=== PATIENT | female | born 1990 | race Caucasian/White ===

== ENCOUNTER 2017-12-30 00:07 | Outpatient (CLI) | payer OTHER, SELFPAY ==
--- NOTE | 2017-12-30 08:03 | DI.REPORT_ITS ---
SYMPTOM/DIAGNOSIS: INTERVAL GROWTH AND EFW AT 38 WEEKS, H/O SHOULDER DYSTOCIA IN PRIOR Z87.59 OB ULTRASOUND: No prior comparison exams are available. The fetus is in cephalic position. The placenta is fundal. The biometric measurements correspond to 38 weeks 2 days consistent with the historical data given. The estimated weight is 3434 grams, corresponding to the 68th percentile. The amniotic fluid index appears normal at 13.1 No abnormalities are identified. IMPRESSION: size and weights are within normal limits for gestational age. Many abnormalities cannot be diagnosed. A normal exam does not exclude a congenital anomaly. Radiology No. [id number] LMP: Exam Date: 12/30/2017 [facility] wks days on EDC ([facility]) 01/13/18 Confirmed: HISTORY:GROWTH HX SHOULDER DYSTOCIA IN PRIOR DELIVERIES ---- PREDICTED GESTATIONAL AGE NUMBER 38- weeks with a range of 37- week to 39- weeks. 1 Determined by___1STUS___LMP_XX__HISTORY Info. pertaining to fetus # PLACENTA PRESENTATION Grade II Cephalic__XX_ Anterior___Posterior_XX__ Breech____ Right Left Transverse(head right___ Fundal_XX__Low-lying___Previa___ Transverse(head left___ Varying BIOMETRY AMNIOTIC FLUID BPD: 94 mm 38 +1 weeks Normal HC: 336 mm 38 +2 weeks AC: 342 mm 38 +1 weeks FL: 75 mm 38 +3 weeks AMNIOTIC FLUID INDEX >26 WK CRL: -- mm -- weeks Cisterna Magna: -- mm CI: 84 RUQ:__3.2____LUQ__3.2 Cerebellum: -- cm EFW: 3434 grams 68% Percentile RLQ:__4.1____LLQ___2.6____ Total:_13.1___cms Composite AGE= 38 +2 wks EDC by US__01/11/18 BIOPHYSICAL PROFILE ANATOMY IDENTIFIED SCORE 0/2 Heart: 4-Chamber___Rate:BPM LVOT: RVOT: Amniotic Fluid(>2cms)____ Stomach: Kidneys: Respirations (>30 secs) Bladder: Post. Fossa: Body Flex/Extension 3 vessel cord: Ventricles: cord insertion: Lips:____ Extremity Flex/Extension spinal morphology: Nose: Total Score= Palate: NS=not seen
== END 2017-12-30 00:08 ==
PROVIDERS: PCP Student in an Organized Health Care Education/Training Program; Visit Provider Advanced Practice Midwife
DX: Z34.93 Encounter for supervision of normal pregnancy, unspecified, third trimester (principal); Z87.59 Personal history of other complications of pregnancy, childbirth and the puerperium
CPT/HCPCS: 76816

== ENCOUNTER 2020-07-23 05:52 | Observation (INO) | payer OTHER, SELFPAY ==
[2020-07-23] VITALS (22 sets, daily range): BP systolic 82–122; BP diastolic 46–86; PULSE 74–111; RESP 14–20; TEMP 36–37.5; O2SAT 96–100
[2020-07-23 06:18] LABS: Lactate 1.8 mmol/L (0.6-1.4)
--- NOTE | 2020-07-23 06:18 | ED.GENADUL_ITS ---
Discharge Plan Disposition Patient Disposition: [facility] INPATIENT Condition: Stable Discharge Details Clinical Impression: Acute appendicitis Attending Provider: Sailaja Loera Primary Care Provider: Rohini Wells ED Provider: Tashia Tovar Discharge Data Discharge Date/Time-TO BE ENTERED AT DEPARTURE: 07/23/20 08:45 Medical Decision Making <Gordon Payton MD - Last Filed: 07/23/20 07:37> 29 yo female who denies chronic medical problems comes in with chief complaint of middle sharp abdominal pain since 8pm last night that she has never had before. Denies fevers, chest pain, dyspnea. Has had n/v as well no vaginal bleeding or discharge. She appears in pain with tenderness to the mid abdomen around the umbilicus and also the rlq no rebound tenderness. Given location of pain concern for pancreatitis, appendicitis and less likely ovarian torsion given lack of pelvic pain, will obtain labs and ct imaging to further evaluate. No pain out of proportion to exam so doubt mesenteric ischemia. Will also check hcg to evaluate for possible ectopic ct confims appendicitis. Discussed this with the patient, will consult general surgery. Patient remains stable Differential Diagnosis Differential Diagnosis: pancreatitis, hepatitis, appendicitis, ovarian cyst Lab Data Lab results reviewed: Yes I reviewed the patient's lab results. <Tashia Tovar DO - Last Filed: 07/23/20 09:55> 0800 --please see Dr. Payton's note for initial presentation, exam and plan. Case endorsed to follow-up with Dr. Loera regarding CT findings of appendicitis. Dr. Loera returned call while I was out of the department and spoke with gunstock spray unit feeder. Admission orders placed by Dr. Loera. Plan for patient to go to the OR. I examined patient at bedside and her abdomen is soft with tenderness in the right lower quadrant. She is complaining of return of pain. Another dose of Dilaudid ordered. Zosyn ordered per Dr. Payton. She denies any nausea. We will also order a normal saline infusion at 125 cc/hr. She is hemodynamically stable. Medical Records Medical records reviewed: Yes I reviewed the patient's medical records. Imaging Data Radiologic Study: Radiologist's impression: Addendum created by Harpreet Woods MD on 07/23/2020 7:42:01 AM EST: THIS REPORT CONTAINS FINDINGS THAT MAY BE CRITICAL TO PATIENT CARE. The findings were verbally communicated via telephone conference with Gordon Payton at 7:41 AM EST on 07/23/2020. The findings were acknowledged and understood. Initial report created on 07/23/2020 7:34:08 AM EST: CT Abdomen And Pelvis With Contrast Exam date and time: 07/23/2020 7:17 AM Age: 29 years old Clinical indication: Generalized; Patient HX: Middle sharp abdominal pain. TECHNIQUE: Imaging protocol: Computed tomography of the abdomen and pelvis with contrast. Radiation optimization: All CT scans at this facility use at least one of these dose optimization techniques: automated exposure control; mA and/or kV adjustment per patient size (includes targeted exams where dose is matched to clinical indication); or iterative reconstruction. Contrast material: OMNI-PAQUE 350; Contrast volume: 89 ml; Contrast route: INTRAVENOUS (IV); COMPARISON: [place] OB ASSESSMENT - WEIGHT/PENELOPE 12/30/2017 1:45 PM FINDINGS: Liver: Normal. No mass. Gallbladder and bile ducts: Normal. No calcified stones. No ductal dilation. Pancreas: Normal. No ductal dilation. Spleen: Normal. No splenomegaly. Adrenal glands: Normal. No mass. Kidneys and ureters: Normal. No hydronephrosis. Stomach and bowel: Unremarkable. No obstruction. No mucosal thickening. Appendix: Retrocecal appendicitis noted with the appendix measuring up to 13 mm in transverse dimension and demonstrating mild surrounding inflammation without abscess or free air. Intraperitoneal space: Unremarkable. No free air. No significant fluid collection. Vasculature: Unremarkable. No abdominal aortic aneurysm. Lymph nodes: Unremarkable. No enlarged lymph nodes. Urinary bladder: Unremarkable as visualized. Reproductive: Retroverted uterus incidentally noted. Bones/joints: Unremarkable. No acute fracture. Soft tissues: Unremarkable. IMPRESSION: 1. Retrocecal appendicitis noted with the appendix measuring up to 13 mm in transverse dimension and demonstrating mild surrounding inflammation without abscess or free air. 2. Retroverted uterus incidentally noted. Lab Data Lab results reviewed: Yes I reviewed the patient's lab results. Labs: Laboratory Tests Range/Units 07/23/20 07/23/20 07/23/20 06:10 06:10 06:10 WBC (4.4-10.8) 10^3/uL 13.92 H RBC (3.93-5.22) 10^6/uL 4.54 Hgb (11.2-15.7) g/dL 13.6 Hct (36.0-46.0) % 40.2 MCV (80-95) fL 88.5 MCH (27.0-33.0) pg 30.0 MCHC (32.0-36.0) % 33.8 RDW (11.7-14.6) % 11.7 Plt Count (130-400) 10^3/uL 197 MPV (8.0-11.0) fL 10.0 Immature Gran % 0.4 Neutrophils % 81.1 Lymphocytes % 12.3 Monocytes % 4.5 Eosinophils % 1.3 Basophils % 0.4 Nucleated RBC % % 0 Absolute Neutrophils (1.2-6.7) 10^3/uL 11.29 H Absolute Lymphocytes (1.2-3.4) 10^3/uL 1.71 Absolute Monocytes (0.1-0.8) 10^3/uL 0.63 Absolute Eosinophils (0.0-0.7) 10^3/uL 0.18 Absolute Basophils (0.0-0.2) 10^3/uL 0.06 VBG Lactate (0.6-1.4) mmol/L 1.8 H Sodium (136-145) mmol/L 137 Potassium (3.5-5.1) mmol/L 3.8 Chloride (98-107) mmol/L 104 Carbon Dioxide (21.0-32.0) mmol/L 23.8 Anion Gap (3-11) mmol/L 9.2 BUN (7-18) mg/dL 14 Creatinine (0.55-1.02) mg/dL 0.7 Estimated GFR/1.73 m2 (mL/min/1.73m2) >= 60.00 Glucose (74-106) mg/dL 122 H Calcium (8.5-10.1) mg/dL 8.6 Total Bilirubin (0.2-1.0) mg/dL 0.4 Conjugated Bilirubin (0.00-0.20) mg/dL 0.05 AST (15-37) U/L 14 L ALT (14-59) U/L 18 Alkaline Phosphatase (46-116) U/L 67 Total Protein (6.4-8.2) g/dL 7.6 Albumin (3.4-5.0) g/dL 3.8 Lipase (73-393) U/L 128 Urine Color (Yellow) Urine Clarity (Clear) Urine pH (5-8) Ur Specific Bland (1.005-1.025) Urine Protein (Negative) mg/dL Urine Ketones (Negative) mg/dL Urine Blood (Negative) Urine Nitrite (Negative) Urine Bilirubin (Negative) Urine Urobilinogen (Up TO 0.2) EU/dL Ur Leukocyte Esterase (Negative) Urine RBC (0-2) HPF Urine WBC (0-5) HPF Ur Epithelial Cells (Negative) HPF Urine Crystals (Negative) HPF Urine Bacteria (Negative) HPF Urine Casts (Negative) LPF Urine Mucus (Negative) Urine Other (Negative) Ur Culture Indicated? Urine Glucose (Negative) mg/dL COVID-19 Source SARS-CoV-2 (PCR) (Negative) Influenza Type A (PCR) (Negative) Influenza Type B (PCR) (Negative) RSV (PCR) (Negative) Range/Units 07/23/20 07/23/20 06:29 08:17 WBC (4.4-10.8) 10^3/uL RBC (3.93-5.22) 10^6/uL Hgb (11.2-15.7) g/dL Hct (36.0-46.0) % MCV (80-95) fL MCH (27.0-33.0) pg MCHC (32.0-36.0) % RDW (11.7-14.6) % Plt Count (130-400) 10^3/uL MPV (8.0-11.0) fL Immature Gran % Neutrophils % Lymphocytes % Monocytes % Eosinophils % Basophils % Nucleated RBC % % Absolute Neutrophils (1.2-6.7) 10^3/uL Absolute Lymphocytes (1.2-3.4) 10^3/uL Absolute Monocytes (0.1-0.8) 10^3/uL Absolute Eosinophils (0.0-0.7) 10^3/uL Absolute Basophils (0.0-0.2) 10^3/uL VBG Lactate (0.6-1.4) mmol/L Sodium (136-145) mmol/L Potassium (3.5-5.1) mmol/L Chloride (98-107) mmol/L Carbon Dioxide (21.0-32.0) mmol/L Anion Gap (3-11) mmol/L BUN (7-18) mg/dL Creatinine (0.55-1.02) mg/dL Estimated GFR/1.73 m2 (mL/min/1.73m2) Glucose (74-106) mg/dL Calcium (8.5-10.1) mg/dL Total Bilirubin (0.2-1.0) mg/dL Conjugated Bilirubin (0.00-0.20) mg/dL AST (15-37) U/L ALT (14-59) U/L Alkaline Phosphatase (46-116) U/L Total Protein (6.4-8.2) g/dL Albumin (3.4-5.0) g/dL Lipase (73-393) U/L Urine Color (Yellow) Yellow Urine Clarity (Clear) Clear Urine pH (5-8) 6.0 Ur Specific Bland (1.005-1.025) >= 1.030 H Urine Protein (Negative) mg/dL 30 H Urine Ketones (Negative) mg/dL Negative Urine Blood (Negative) Moderate H Urine Nitrite (Negative) Negative Urine Bilirubin (Negative) Negative Urine Urobilinogen (Up TO 0.2) EU/dL 0.2 Ur Leukocyte Esterase (Negative) Negative Urine RBC (0-2) HPF 10-20 H Urine WBC (0-5) HPF 3-5 Ur Epithelial Cells (Negative) HPF Moderate Urine Crystals (Negative) HPF Negative Urine Bacteria (Negative) HPF Few Urine Casts (Negative) LPF Negative Urine Mucus (Negative) Moderate Urine Other (Negative) Ur Culture Indicated? No/sq. contamination Urine Glucose (Negative) mg/dL Negative COVID-19 Source Nasopharyx SARS-CoV-2 (PCR) (Negative) Negative Influenza Type A (PCR) (Negative) Negative Influenza Type B (PCR) (Negative) Negative RSV (PCR) (Negative) Negative HPI <Gordon Payton MD - Last Filed: 07/23/20 07:37> General Date/Time Provider Initiated Documentation: 07/23/20 05:53 . Limitations to Documentation: no limitations . Information obtained by: patient . History of Present Illness 29 year old F presents to the emergency department with the chief complaint of abdominal pain, described as moderate and severe, Patient reports no radiation. Patient started experiencing this day(s) (1) and it has been constant. No relieving factors improve symptom(s), No exacerbating factors reported . Patient notes nausea/vomiting. Patient did receive the following treatments prior to arri dot, none Related Data Home Medications Medication Instructions Recorded Confirmed Lactobacillus acidophilus 1 ea PO DAILY 11/01/17 07/23/20 [Probiotic] cholecalciferol (vitamin D3) 125 5,000 unit PO DAILY 02/14/18 07/23/20 mcg (5,000 unit) capsule multivitamin 1 tab PO DAILY 02/14/18 07/23/20 Allergies Allergy/AdvReac Type Severity Reaction Status Date / Time No Known Allergies Allergy Unverified 07/23/20 06:00 General Stated Complaint: Abd Prob RACHEL: 3 Review of Systems <Gordon Payton MD - Last Filed: 07/23/20 07:37> All systems reviewed & are unremarkable except as noted in HPI and below Constitutional Constitutional: Denies chills, Denies fever(s) and Denies weakness Cardiovascular Cardiovascular: Denies chest pain and Denies dyspnea Respiratory Respiratory: Denies cough and Denies dyspnea Musculoskeletal Musculoskeletal: Denies joint swelling Neurologic Neurologic: Denies weakness Psychiatric Psychiatric: Denies depression PFSH <Gordon Payton MD - Last Filed: 07/23/20 07:37> Surgical History (Updated 07/23/20 @ 08:53 by Anjel Liang) Dilation and curettage (03/15/13) S/P ovarian cystectomy Laproscopic age 9. Family History Mother Asthma Father Hyperlipidemia Grandfather Essential hypertension Hyperlipidemia Stroke Grandmother Pulmonary fibrosis Grandmother Essential hypertension Hyperlipidemia Maternal Aunt Essential hypertension Neoplasm MALIGNANT BREAST Social History (Updated 02/11/18 @ 15:42 by Barbara Desai LPN) Smoking/Tobacco Use Status: Never Smoking risk assessment performed?: Yes Alcohol Intake: former Details: none w/ 1 monthly or less Drug use: Never Substance use type: does not use Adopted: No Foster care: No Number of Children: 2 Yovana/Sikhism: christiani Special yovana needs: No Seatbelt use: always Helmet use: Yes Drive intox or ride w/intox local company hazmat driver: No Water heater temp set <120 deg: Yes Working smoke detector in home: Yes Fire extinguisher in home: Yes Carbon monox detector in home: Yes Firearms in home: Yes Do you feel safe at home: Yes Do you feel safe in your relationship?: Yes Victim of physical abuse: No Victim of emotional abuse: No Victim of sexual abuse: No History History 8 Para Hx # Term Pregnancies Multiple births Hx # Pregnancies Ectopic pregnancies AB induced Hx Number of Living Children AB spontaneous Exam <Gordon Payton MD - Last Filed: 07/23/20 07:37> Const General: no acute distress Orientation: alert HENMT Head: normal to inspection Ears: external ears normal General nose exam: external nose normal Mouth: moist mucous membranes Eyes General: appearance normal, both eyes and all related structures Neck Neck: normal visual inspection Resp Effort & Inspection: normal respiratory effort and able to speak in complete sentences Cardio Rate: regular rate GI Inspection: normal to inspection and no abdominal wall ecchymosis Palpation: tender Skin General skin exam: no rashes or lesions noted Neuro General: patient alert and patient oriented x3 Extrem General: normal to inspection Psych Mental Status: mental status grossly normal Course <Gordon Payton MD - Last Filed: 07/23/20 07:37> Vital Signs Vital signs: Vital Signs Temperature 36.6 C 07/23/20 05:56 Pulse 84 07/23/20 05:56 Respiratory Rate 15 07/23/20 05:56 Blood Pressure 122/86 07/23/20 05:56 Pulse Oximetry 98 07/23/20 05:56 Temperature 36.6 C 07/23/20 05:56 Temperature Source Temporal Artery Scan 07/23/20 05:56 Pulse 84 07/23/20 05:56 Respiratory Rate 15 07/23/20 05:56 Respiratory Effort Non-Labored 07/23/20 05:56 Blood Pressure 122/86 07/23/20 05:56 Blood Pressure Position Sitting 07/23/20 05:56 Pulse Oximetry 98 07/23/20 05:56 Oxygen Delivery Method Room Air 07/23/20 05:56 Oxygen Flow Rate 0 07/23/20 05:56 Pain Level 10 07/23/20 05:56
[2020-07-23 06:21] LABS: Abs Immature Grans 0.06 10^3/uL (0.0-0.06); Absolute Eosinophil Count 0.18 10^3/uL (0.0-0.7); Absolute Lymphocyte Count 1.71 10^3/uL (1.2-3.4); Absolute Monocyte Count 0.63 10^3/uL (0.1-0.8); Absolute Neutrophil Count 11.29 10^3/uL (1.2-6.7); Basophils % 0.4; Eosinophils % 1.3; HCT 40.2 % (36.0-46.0); HGB 13.6 g/dL (11.2-15.7); Immature Grans % 0.4; Lymphocytes % 12.3; MCHC 33.8 % (32.0-36.0); MCV 88.5 fL (80-95); Monocytes % 4.5; Neutrophils % 81.1; Nucleated RBC 0 %; Platelet Count 197 10^3/uL (130-400); RBC 4.54 10^6/uL (3.93-5.22); RDW 11.7 % (11.7-14.6); RDW-SD 37.2 fL; WBC 13.92 10^3/uL (4.4-10.8)
[2020-07-23] MEDS: Normal Saline 1,000 ML 1000 ML IV (06:24)
[2020-07-23 06:25] LABS: Absolute Basophil Count 0.06 10^3/uL (0.0-0.2)
[2020-07-23] MEDS: HYDROmorphone 2 MG/ML VIAL 1 MG IVP ×2 (06:32→08:16)
[2020-07-23] MEDS: Ondansetron 4 MG/2 ML VIAL IVP (06:33)
[2020-07-23 06:35] LABS: ALT 18 U/L (14-59); AST 14 U/L (15-37); Albumin 3.8 g/dL (3.4-5.0); Alkaline Phosphatase 67 U/L (46-116); Anion Gap 9.2 mmol/L (3-11); BUN 14 mg/dL (7-18); Bilirubin, Direct 0.05 mg/dL (0.00-0.20); Bilirubin, Total 0.4 mg/dL (0.2-1.0); CO2 23.8 mmol/L (21.0-32.0); CREATININE 0.7 mg/dL (0.55-1.02); Calcium 8.6 mg/dL (8.5-10.1); Chloride 104 mmol/L (98-107); Glucose 122 mg/dL (74-106); Lipase 128 U/L (73-393); Potassium 3.8 mmol/L (3.5-5.1); Sodium 137 mmol/L (136-145); Total Protein 7.6 g/dL (6.4-8.2)
[2020-07-23 06:40] LABS: Bilirubin Negative (Negative); Blood Moderate (Negative); Clarity Clear (Clear); Glucose Negative (Negative); Ketones Negative (Negative); Leukocyte Esterase Negative (Negative); Nitrite Negative (Negative); Specific Gravity >= 1.030 (1.005-1.025); Urobilinogen 0.2 EU/dL (Up TO 0.2)
[2020-07-23 07:08] LABS: Epithelial Cells Moderate HPF (Negative)
[2020-07-23 07:09] LABS: Bacteria Few HPF (Negative); C & S Indicated? No/Sq. Contamination; Casts Negative LPF (Negative); Crystals Negative HPF (Negative); Mucus Moderate (Negative)
--- NOTE | 2020-07-23 07:22 | DI.CT_ITS ---
EXAM: CT ABDOMEN PELVIS W CLINICAL HISTORY: middle sharp abdominal pain. TECHNIQUE: Imaging Protocol: Axial computed tomography images with coronal and sagittal reformatted images were created and reviewed CONTRAST MATERIAL: Intravenous: Omnipaque 350 Contrast volume:89 ml Oral: no COMPARISON: No exams were available for comparison FINDINGS: ABDOMEN: Lung Bases: Normal where visualized. Liver: Normal density. No measurable mass. Gallbladder and biliary tract: No radiodense calculus or dilation. Pancreas: Normal density, no abnormal calcifications or inflammatory process. Spleen: Normal. Kidneys: Normal size, contour and axis. No radiodense stones or obstructive uropathy. No masses seen. Adrenal glands: No masses seen. Abdominal Aorta: Abdominal portion non-dilated. PELVIS: Bladder: Symmetric distention, no gross wall thickening. Bowel: Dilated retrocecal appendix with surrounding inflammation. No evidence of perforation or absc ess. No small-bowel obstruction. Peritoneal cavity: No ascites, collection or free air. Bones: Within normal limits. Reproductive organs: Within normal limits. Retroverted uterus. Lymph nodes: Unremarkable. Impression: Findings consistent with acute appendicitis. The appendix is retrocecal. RADIATION DOSE DELIVERED: 710.54mGy.cm Total DLP DATA REPOSITORY: All CT scans at this facility are submitted to the National Radiology Data Registry (NRDR) Dose Index Registry (DIR) with the [employer] (ACR). RADIATION OPTIMIZATION: All CT scans at this facility use at least one of these dose optimization te chniques: automated exposure control; mA and/or kV adjustment per patient size (includes targeted exa ms where dose is matched to clinical indication); or iterative reconstruction.
[2020-07-23] MEDS: Normal Saline - Diluent 50 ML VIAL IV (07:28)
[2020-07-23] MEDS: Omnipaque 350 MG/ML 100 ML BTL 89 ML IJ (07:29)
[2020-07-23] MEDS: Normal Saline Flush 10 ML SYR IVP ×2 (07:30→17:28)
--- NOTE | 2020-07-23 07:34 | DI.VRAD_ITS ---
Addendum created by Harpreet Woods MD on 07/23/2020 7:42:01 AM EST: THIS REPORT CONTAINS FINDINGS THAT MAY BE CRITICAL TO PATIENT CARE. The findings were verbally communicated via telephone conference with Gordon Payton at 7:41 AM EST on 07/23/2020. The findings were acknowledged and understood. Initial report created on 07/23/2020 7:34:08 AM EST: PROCEDURE INFORMATION: Exam: CT Abdomen And Pelvis With Contrast Exam date and time: 07/23/2020 7:17 AM Age: 29 years old Clinical indication: Generalized; Patient HX: Middle sharp abdominal pain. TECHNIQUE: Imaging protocol: Computed tomography of the abdomen and pelvis with contrast. Radiation optimization: All CT scans at this facility use at least one of these dose optimization techniques: automated exposure control; mA and/or kV adjustment per patient size (includes targeted exams where dose is matched to clinical indication); or iterative reconstruction. Contrast material: OMNI-PAQUE 350; Contrast volume: 89 ml; Contrast route: INTRAVENOUS (IV); COMPARISON: [place] OB ASSESSMENT - WEIGHT/PENELOPE 12/30/2017 1:45 PM FINDINGS: Liver: Normal. No mass. Gallbladder and bile ducts: Normal. No calcified stones. No ductal dilation. Pancreas: Normal. No ductal dilation. Spleen: Normal. No splenomegaly. Adrenal glands: Normal. No mass. Kidneys and ureters: Normal. No hydronephrosis. Stomach and bowel: Unremarkable. No obstruction. No mucosal thickening. Appendix: Retrocecal appendicitis noted with the appendix measuring up to 13 mm in transverse dimension and demonstrating mild surrounding inflammation without abscess or free air. Intraperitoneal space: Unremarkable. No free air. No significant fluid collection. Vasculature: Unremarkable. No abdominal aortic aneurysm. Lymph nodes: Unremarkable. No enlarged lymph nodes. Urinary bladder: Unremarkable as visualized. Reproductive: Retroverted uterus incidentally noted. Bones/joints: Unremarkable. No acute fracture. Soft tissues: Unremarkable. IMPRESSION: 1. Retrocecal appendicitis noted with the appendix measuring up to 13 mm in transverse dimension and demonstrating mild surrounding inflammation without abscess or free air. 2. Retroverted uterus incidentally noted. Dictated and Authenticated by: Harpreet Woods MD. Ordering:BO Leyva MD
[2020-07-23] MEDS: PIPERACILLIN/TAZO 4.5 GM in Normal Saline 100 ML IVPB (08:18)
--- NOTE | 2020-07-23 08:27 | HPE_ITS ---
Date of service: 07/23/20 Time of Service: 08:30 Assessment and Plan Assessment and plan (1) Acute appendicitis: Status: Acute Assessment and plan: Ms. Araujo is a 29-year-old female who started having abdominal pain last night. The pain is periumbilical and right lower quadrant. CT scan showed acute appendicitis. Labs showed increase in her white blood cells to 13.92. Risks benefits and complications of a laparoscopic appendectomy reviewed with her. Risks, benefits and complications have been reviewed. Complications include but are not limited to bleeding, infection, injury to adjacent bowel, abscess formation, staple line leak, inability to do the procedure laparoscopically and adverse reaction to the medications. Questions were entertained and answered to their satisfaction and they wished to proceed. No guarantees were given or implied. COVID-19 testing explained to the patient. Reason for test reviewed. Quarantine per state requirements reviewed with patient. Patient understands and agrees to testing. Covid tested in the ER. Proceed with laparoscopic appendectomy. I spent 30 minutes in reviewing the record, seeing the patient and documenting in the medical record. Qualifiers: Acute appendicitis type: with localized peritonitis Appendicitis gangrene presence: without gangrene Appendicitis perforation presence: with pe rforation Appendicitis abscess presence: without abscess Qualified Code(s): K35.32 - Acute appendicitis with perforation and localized peritonitis, without abscess History of Present Illness Consults Consult date: 07/23/20 Requesting physician: Tashia Tovar Narrative: 29 yo female who denies chronic medical problems comes in with chief complaint of middle sharp abdominal pain since 8pm last night that she has never had before. Denies fevers, chest pain, dyspnea. Has had n/v as well no vaginal bleeding or discharge. She appears in pain with tenderness to the mid abdomen around the umbilicus and also the rlq. CT scan revealed an inflammed appendix. There were no signs of rupture on CT scan. Labs reviewed and patient noted to have a slight leukocytosis. Review of Systems Constitutional Constitutional: Denies fever(s), Denies headache(s) and Denies weight loss Eyes Eyes: Denies change in vision ENT Ears, Nose, Mouth, and Throat: Denies change in voice, Denies dysphagia and Denies headache(s) Cardiovascular Cardiovascular: Denies chest pain, Denies chest pain at rest, Denies irregular heart rhythm, Denies dyspnea and Denies dyspnea on exertion Respiratory Respiratory: Denies cough, Denies dyspnea and Denies dyspnea on exertion Gastrointestinal Gastrointestinal: Reports as per HPI, Denies dysphagia, Denies dyspepsia and Denies heartburn Genitourinary Genitourinary: Denies dysuria, Denies urinary incontinence and Denies urinary urgency Neurologic Neurologic: Denies headache(s) Endocrine Endocrine: Reports system reviewed and no additional complaints, except as documented Hematologic/Lymphatic Hematologic/Lymphatic: Denies easy bruising and Denies lymphadenopathy PFSH Medical History No active medical problems Surgical History Dilation and curettage (03/15/13) S/P ovarian cystectomy Laproscopic age 9. Family History Mother Asthma Father Hyperlipidemia Grandfather Essential hypertension Hyperlipidemia Stroke Grandmother Pulmonary fibrosis Grandmother Essential hypertension Hyperlipidemia Maternal Aunt Essential hypertension Neoplasm MALIGNANT BREAST Social History Smoking/Tobacco Use Status: Never Smoking risk assessment performed?: Yes Alcohol Intake: former Details: none w/ 1 monthly or less Drug use: Never Substance use type: does not use Adopted: No Foster care: No Number of Children: 2 Yovana/Confucianism: christiani Special yovana needs: No Seatbelt use: always Helmet use: Yes Drive intox or ride w/intox local company intermodal truck driver: No Water heater temp set <120 deg: Yes Working smoke detector in home: Yes Fire extinguisher in home: Yes Carbon monox detector in home: Yes Firearms in home: Yes Do you feel safe at home: Yes Do you feel safe in your relationship?: Yes Victim of physical abuse: No Victim of emotional abuse: No Victim of sexual abuse: No History History 8 Para Hx # Term Pregnancies Multiple births Hx # Pregnancies Ectopic pregnancies AB induced Hx Number of Living Children AB spontaneous Meds Home Medications and Allergies Home Medications Medication Instructions Recorded Confirmed Type Lactobacillus acidophilus 1 ea PO DAILY 11/01/17 07/23/20 History [Probiotic] cholecalciferol (vitamin D3) 125 5,000 unit PO DAILY 02/14/18 07/23/20 History mcg (5,000 unit) capsule multivitamin 1 tab PO DAILY 02/14/18 07/23/20 History Allergies Allergy/AdvReac Type Severity Reaction Status Date / Time No Known Allergies Allergy Unverified 07/23/20 06:00 Exam Const General: healthy appearing and comfortable Orientation: alert and oriented x3 HENMT Head: normocephalic and atraumatic Resp Effort & Inspection: normal respiratory effort Auscultation: clear to auscultation bilaterally Cardio Rate: regular rate Rhythm: regular rhythm Heart Sounds: no click, no gallops and no murmurs GI Inspection: normal to inspection Palpation: soft, no hepatosplenomegaly and tender in the RLQ (no rebound or guarding) Auscultation: normal bowel sounds Results Labs Result diagrams: 07/23/20 06:10 07/23/20 06:10 Labs: Laboratory Results - last 24 hr 07/23/20 07/23/20 07/23/20 06:10 06:10 06:10 WBC 13.92 H RBC 4.54 Hgb 13.6 Hct 40.2 MCV 88.5 MCH 30.0 MCHC 33.8 RDW 11.7 Plt Count 197 MPV 10.0 Immature Gran % 0.4 Neutrophils % 81.1 Lymphocytes % 12.3 Monocytes % 4.5 Eosinophils % 1.3 Basophils % 0.4 Nucleated RBC % 0 Absolute Neutrophils 11.29 H Absolute Lymphocytes 1.71 Absolute Monocytes 0.63 Absolute Eosinophils 0.18 Absolute Basophils 0.06 VBG Lactate 1.8 H Sodium 137 Potassium 3.8 Chloride 104 Carbon Dioxide 23.8 Anion Gap 9.2 BUN 14 Creatinine 0.7 Estimated GFR/1.73 m2 >= 60.00 Glucose 122 H Calcium 8.6 Total Bilirubin 0.4 Conjugated Bilirubin 0.05 AST 14 L ALT 18 Alkaline Phosphatase 67 Total Protein 7.6 Albumin 3.8 Lipase 128 Urine Color Urine Clarity Urine pH Ur Specific [place] Urine Protein Urine Ketones Urine Blood Urine Nitrite Urine Bilirubin Urine Urobilinogen Ur Leukocyte Esterase Urine RBC Urine WBC Ur Epithelial Cells Urine Crystals Urine Bacteria Urine Casts Urine Mucus Urine Other Ur Culture Indicated? Urine Glucose COVID-19 Source 07/23/20 07/23/20 06:29 08:17 WBC RBC Hgb Hct MCV MCH MCHC RDW Plt Count MPV Immature Gran % Neutrophils % Lymphocytes % Monocytes % Eosinophils % Basophils % Nucleated RBC % Absolute Neutrophils Absolute Lymphocytes Absolute Monocytes Absolute Eosinophils Absolute Basophils VBG Lactate Sodium Potassium Chloride Carbon Dioxide Anion Gap BUN Creatinine Estimated GFR/1.73 m2 Glucose Calcium Total Bilirubin Conjugated Bilirubin AST ALT Alkaline Phosphatase Total Protein Albumin Lipase Urine Color Yellow Urine Clarity Clear Urine pH 6.0 Ur Specific [place] >= 1.030 H Urine Protein 30 H Urine Ketones Negative Urine Blood Moderate H Urine Nitrite Negative Urine Bilirubin Negative Urine Urobilinogen 0.2 Ur Leukocyte Esterase Negative Urine RBC 10-20 H Urine WBC 3-5 Ur Epithelial Cells Moderate Urine Crystals Negative Urine Bacteria Few Urine Casts Negative Urine Mucus Moderate Urine Other Ur Culture Indicated? No/sq. contamination Urine Glucose Negative COVID-19 Source Nasopharyx Last Vital Signs Temp 97.3 F L 07/23/20 08:05 Pulse 86 07/23/20 08:15 Resp 20 07/23/20 08:05 BP 121/75 07/23/20 08:15 Pulse Ox 99 07/23/20 08:20
[2020-07-23] MEDS: Normal Saline 1,000 ML 125 ML IV (08:30)
[2020-07-23 09:04] LABS: Influenza A PCR Negative (Negative); Influenza B PCR Negative (Negative); RSV PCR Negative (Negative)
[2020-07-23 09:07] LABS: COVID-19 PCR Negative (Negative)
[2020-07-23] MEDS: Lactated Ringers 1,000 ML 75 ML IV (10:05)
[2020-07-23] MEDS: PIPERACILLIN/TAZO 3.375 GM in Normal Saline 50 ML IVPB ×2 (11:22→17:28)
[2020-07-23] MEDS: Bupivacaine 0.25% Pres-Free 30 ML VIAL (11:45)
[2020-07-23] MEDS: Bupivacaine LIPOSOME/PF 133 MG/10 ML VIAL IJ (11:45)
--- NOTE | 2020-07-23 11:45 | APP_PTH ---
PATIENT: Franci Araujo LOC: [id number]#:[id number] AGE/SX: 29/F ROOM: 215 RE07/23/[address]: Sailaja Loera MD : 1990 BED: A DIS: 07/23/2020 SPEC #: [id number] RECD: 07/23/20 12:57 STATUS: TIARA REQ #: [id number] LEONARDA: 07/23/20 11:[address]: Sailaja Loera DEPT: Surgical Specimen RECD BY: Francoise Mayo ENTERED: 07/23/20 12:58 SP TYPE: Appendix OTHR DR: Rohini Wells Tissues: 1 - APPENDIX NOT INCIDENTAL Procedures: GROSS AND MICRO LEVEL 3 Comments: [id number]
--- NOTE | 2020-07-23 12:00 | W.PM.OP ---
Date of service: 07/23/20 Time of Service: 12:00 Operative Note Operative Note DATE OF PROCEDURE: 07/23/20 PRE-OP DIAGNOSIS: acute appendicitis POST-OP DIAGNOSIS: same PROCEDURE: Laparoscopic Appendectomy SURGEON: Sailaja Loera LANGUAGES AND LITERATURE INSTRUCTOR: Yue Echavarria ANESTHESIA TYPE: General LMA/ETT (ASA 2E/ Brandyn Mcghee CRNA) Refer to Anesthesia Record ESTIMATED BLOOD LOSS: 25 PATHOLOGY: other (Appendix) COMPLICATIONS: None Patient was transported to: PACU Patient's condition: stable Indications: Ms. Araujo is a 29-year-old female who started having abdominal pain last night. The pain is periumbilical and right lower quadrant. CT scan showed acute appendicitis. Labs showed increase in her white blood cells to 13.92. Risks benefits and complications of a laparoscopic appendectomy reviewed with her. Risks, benefits and complications have been reviewed. Complications include but are not limited to bleeding, infection, injury to adjacent bowel, abscess formation, staple line leak, inability to do the procedure laparoscopically and adverse reaction to the medications. Questions were entertained and answered to their satisfaction and they wished to proceed. No guarantees were given or implied. COVID-19 testing explained to the patient. Reason for test reviewed. Quarantine per state requirements reviewed with patient. Patient understands and agrees to testing. Covid tested in the ER. Proceed with laparoscopic appendectomy. Findings: dilated and erythematous appendix Procedure Description: After informed consent was obtained the patient was taken to the operating room placed in the supine position SCDs were applied as well as monitors. A timeout was done. The patient was then placed under general anesthesia and intubated without any difficulty. Next a Hernandez catheter was placed in a standard surgical fashion. At this point the abdomen was prepped and draped in a sterile surgical fashion with chlorhexidine. A second timeout was done and the patient's name, date of , operation to be performed, DVT prophylaxis, antibiotic given, and fire risk was assessed. 10 cc of exparel was mixed 50-50 with 0.5% Bupivocain. The mixture was injected into the dermis just under the umbilicus. A small 5 mm incision was made with an 11 blade. The skin was grasped with penetrating towel clamps on either side of the incision and then using a Visiport a 5 mm port was placed under direct visualization into the abdomen. The abdomen was insufflated. The bowel and omentum just under the port was inspectd. No injuries or bleeding was noted. Local anesthetic was then injected just above the pubic symphysis just to the right of midline. A small 5 mm incision was made with an 11 blade and another 5 mm port was placed under direct visualization into the abdomen. The local anesthetic was then injected in the midline fdc between the umbilicus and suprapubic incisions and a 11 mm incision was made with an 11 blade. A 11 mm port was then placed under direct visualization. The cecum was gently grasped and the appendix was identified. The appendix looked inflammed and thickened. Using the laparoscopic LigaSure the mesoappendix was slowly transected all the way to the neck of the appendix. The appendix was then grasped at the neck and pulled up slightly allowing me to visualize the junction with the cecum. Using a laparoscopic straight stapler the appendix was transected at the junction with the cecum. The appendix was placed into an Endo Catch bag and removed through the 11 mm port site. The port was placed back into the abdomen and the staple line was identified. No bleeding was noted. The transected mesentery was identified and no bleeding was noted. The abdomen was then irrigated with 500 cc of warm normal saline. The effluent was clear. The staple line was inspected one more time and no bleeding was identified at this point. The insufflation was stopped and the air was suctioned out. All 3 ports were then removed. The 11 mm port site fascia was grasped with cockers and was closed with a 0 Vicryl [id number] suture. The skin was then closed with 4-0 Vicryl. The skin was cleaned and dried and skin affix was applied. The patient was woken up, extubated and taken back to recovery room in stable condition. There were no immediate complications. Sponge instrument needle counts were correct at the end of the case x2.
[2020-07-23] MEDS: Acetaminophen 325 MG TAB 650 MG PO (15:53)
--- NOTE | 2020-07-23 17:09 | PGE_ITS ---
Date of Service Date of service: 07/23/20 Time of Service: 17:09 Assessment and Plan Assessment and plan (1) S/P laparoscopic appendectomy: Status: Acute Assessment and plan: Franci is 5 hours post lap. appi. She is doing well. She has been able to eat without N/V. She would like to go home I would like her to have one more dose of antibiotic and then she can go home Follow up in 10 to 14 days Subjective Subjective Interval history since last seen: Franci is doing very well. She has had a couple of pieces of toast and some mashed potatoes without pain or N/V. She has mild shoulder pain as well as mild RLQ pain. Exam GI Inspection: incision (c/d/i) Palpation: soft Objective Last Vital Signs Temp 99.5 F 07/23/20 16:51 Pulse 111 H 07/23/20 16:51 Resp 18 07/23/20 16:51 BP 99/60 L 07/23/20 16:51 Pulse Ox 99 07/23/20 16:51 Laboratory Results - last 24 hr 07/23/20 07/23/20 07/23/20 06:10 06:10 06:10 WBC 13.92 H RBC 4.54 Hgb 13.6 Hct 40.2 MCV 88.5 MCH 30.0 MCHC 33.8 RDW 11.7 Plt Count 197 MPV 10.0 Immature Gran % 0.4 Neutrophils % 81.1 Lymphocytes % 12.3 Monocytes % 4.5 Eosinophils % 1.3 Basophils % 0.4 Nucleated RBC % 0 Absolute Neutrophils 11.29 H Absolute Lymphocytes 1.71 Absolute Monocytes 0.63 Absolute Eosinophils 0.18 Absolute Basophils 0.06 VBG Lactate 1.8 H Sodium 137 Potassium 3.8 Chloride 104 Carbon Dioxide 23.8 Anion Gap 9.2 BUN 14 Creatinine 0.7 Estimated GFR/1.73 m2 >= 60.00 Glucose 122 H Calcium 8.6 Total Bilirubin 0.4 Conjugated Bilirubin 0.05 AST 14 L ALT 18 Alkaline Phosphatase 67 Total Protein 7.6 Albumin 3.8 Lipase 128 Urine Color Urine Clarity Urine pH Ur Specific [place] Urine Protein Urine Ketones Urine Blood Urine Nitrite Urine Bilirubin Urine Urobilinogen Ur Leukocyte Esterase Urine RBC Urine WBC Ur Epithelial Cells Urine Crystals Urine Bacteria Urine Casts Urine Mucus Urine Other Ur Culture Indicated? Urine Glucose COVID-19 Source SARS-CoV-2 (PCR) Influenza Type A (PCR) Influenza Type B (PCR) RSV (PCR) 07/23/20 07/23/20 06:29 08:17 WBC RBC Hgb Hct MCV MCH MCHC RDW Plt Count MPV Immature Gran % Neutrophils % Lymphocytes % Monocytes % Eosinophils % Basophils % Nucleated RBC % Absolute Neutrophils Absolute Lymphocytes Absolute Monocytes Absolute Eosinophils Absolute Basophils VBG Lactate Sodium Potassium Chloride Carbon Dioxide Anion Gap BUN Creatinine Estimated GFR/1.73 m2 Glucose Calcium Total Bilirubin Conjugated Bilirubin AST ALT Alkaline Phosphatase Total Protein Albumin Lipase Urine Color Yellow Urine Clarity Clear Urine pH 6.0 Ur Specific [place] >= 1.030 H Urine Protein 30 H Urine Ketones Negative Urine Blood Moderate H Urine Nitrite Negative Urine Bilirubin Negative Urine Urobilinogen 0.2 Ur Leukocyte Esterase Negative Urine RBC 10-20 H Urine WBC 3-5 Ur Epithelial Cells Moderate Urine Crystals Negative Urine Bacteria Few Urine Casts Negative Urine Mucus Moderate Urine Other Ur Culture Indicated? No/sq. contamination Urine Glucose Negative COVID-19 Source Nasopharyx SARS-CoV-2 (PCR) Negative Influenza Type A (PCR) Negative Influenza Type B (PCR) Negative RSV (PCR) Negative
--- NOTE | 2020-07-23 17:14 | W.PM.DS.N ---
Date of service: 07/23/20 Time of Service: 17:14 DS: Diagnosis Discharge Diagnosis (1) S/P laparoscopic appendectomy: Status: Acute Discharge Plan Disposition Patient Disposition: HOME Condition: Stable Discharge Details Reason For Visit: APPENDICITIS Admit Date/Time: 07/23/20 08:21 Admit Provider: Sailaja Loera Attending Provider: Sailaja Loera Primary Care Provider: Rohini Wells Hospital Course Hospital Course: Mrs. Araujo is a pleasant 29 year old female who came to the ER today for RLQ pain. CT scan showed a dilated appendix and fat stranding. She underwent Laparoscopic Appendectomy. She is doing well 5 hours after surgery. She has eaten some toast and mashed potatoes without N/V. She has some mild RLQ abdominal pain as well as shoulder pain. She has not required anything other then Tylenol for pain since surgery. She has received 2 doses of antibiotics. She will receive one more dose before discharge Home Meds and New Rx's Prescriptions: Continued multivitamin [Daily Multi-Vitamin] tablet 1 tab PO DAILY RF: 0 cholecalciferol (vitamin D3) 5,000 unit capsule 5,000 unit PO DAILY RF: 0 Probiotic 1 EACH capsule 1 ea PO DAILY RF: 0 Discharge Instructions Instructions: Laparoscopic Appendectomy (DC) Additional Instructions: Activity at Home after surgery: 1. Make sure you walk outside at least 4 times per day 2. You should be able to climb a flight of stairs 3. No driving while in pain or taking pain medications 4. No strenuous activity or heavy lifting for 2 weeks (laparoscopic surgery) Diet, Nutrition, & wound healin. Avoid alcohol until after you are recovered from your surgery 2. Make sure to eat plenty of lean protein (meat, fish, eggs, cottage cheese, beans) 3. Eat a variety of fruits and vegetables. Eat plenty of high fiber foods to avoid constipation. 4. Drink plenty of liquids to stay hydrated and avoid constipation Pain Medications: 1. Tylenol 650mg every 6 hours as needed and Ibuprofen 600 mg every 6 hours as needed. You may alternate between the 2 medications every 3 hours 2. If a narcotic has been prescribed take as directed only for breakthrough pain For Constipation: 1. Take Milk of Magnesia or MiraLax as needed for constipation Other: 1. You may shower daily. Do not scrub the incisions 2. Do not soak the incisions for 1 week 3. You may alternate ice and heat as needed for pain and swelling Wound Care: 1. Keep the incisions clean and dry Please call our office if you develop: 1. Fevers >101.5 2. Nausea or Vomiting 3. Worsening pain 4. Redness and thick discharge from the wounds If after hours please call the Hospital at and ask to speak to the on-call surgeon Referrals: Sailaja Loera MD [ [facility] STAFF PHYSICIAN] - 08/02/20 9:30 am Activity:: no lifting >20 lb Equipment/Supplies:: No Equipment Needed Diet:: As Tolerated Discharge Orders Discharge Orders: Discharge Order (Routine); Ordered 07/23/20 Ordered By: Sailaja Loera DS: Summary Time Spent with Patient providing and/or coordinating discharge services: Less than 30 minutes Status at Discharge Functional status at discharge: independent ambulation Overall status at discharge: patient is progressing back to baseline Mental Status: mental status grossly normal Speech and Movement: speech and movement normal Mood: congruent mood Affect: normal affect Exam GI Inspection: incision (c/d/i) Palpation: soft Auscultation: normal bowel sounds Psych Mental Status: mental status grossly normal Speech and Movement: speech and movement normal Mood: congruent mood Affect: normal affect DS: Data Vitals/I&O Vitals and I&O: Vital Signs Temperature 99.5 F 07/23/20 16:51 Temperature Source Temporal Artery Scan 07/23/20 16:51 Pulse 111 H 07/23/20 16:51 Pulse Rhythm Regular 07/23/20 08:54 Respiratory Rate 18 07/23/20 16:51 Respiratory Effort Non-Labored 07/23/20 05:56 Respiratory Depth Normal 07/23/20 08:54 Blood Pressure 99/60 L 07/23/20 16:51 Blood Pressure Mean 80 07/23/20 08:30 Blood Pressure Position Sitting 07/23/20 05:56 Pulse Oximetry 99 07/23/20 16:51 Respiratory End-tidal CO2 30 07/23/20 13:30 Oxygen Delivery Method Room Air 07/23/20 16:51 Oxygen Flow Rate 0 07/23/20 16:51 Pain Level 3 07/23/20 16:51 Comment 07/23/20 15:22 Intake & Output 07/22/20 07/23/20 07/23/20 23:59 11:59 23:59 Intake Total 1245.833 / 2595.833 1350 / 2595.833 Output Total 250 / 1250 1000 / 1250 Balance 995.833 / 1345.833 350 / 1345.833 Weight 137 lb Intake: IV 1245.833 / 1945.833 700 / 1945.833 Oral 650 / 650 Output: Urine 250 / 1250 1000 / 1250 Emesis 0 / 0 Other: Urine Color Yellow Pale Urine Appearance Clear Clear Emesis Description None Voiding Methods Toilet Data Completed and Pending Labs on day of discharge: Labs from last 24 hours 07/23/20 07/23/20 07/23/20 08:17 06:29 06:10 WBC 13.92 H RBC 4.54 Hgb 13.6 Hct 40.2 MCV 88.5 MCH 30.0 MCHC 33.8 RDW 11.7 Plt Count 197 MPV 10.0 Immature Gran % 0.4 Neutrophils % 81.1 Lymphocytes % 12.3 Monocytes % 4.5 Eosinophils % 1.3 Basophils % 0.4 Nucleated RBC % 0 Absolute Neutrophils 11.29 H Absolute Lymphocytes 1.71 Absolute Monocytes 0.63 Absolute Eosinophils 0.18 Absolute Basophils 0.06 VBG Lactate Sodium Potassium Chloride Carbon Dioxide Anion Gap BUN Creatinine Estimated GFR/1.73 m2 Glucose Calcium Total Bilirubin Conjugated Bilirubin AST ALT Alkaline Phosphatase Total Protein Albumin Lipase Urine Color Yellow Urine Clarity Clear Urine pH 6.0 Ur Specific [place] >= 1.030 H Urine Protein 30 H Urine Ketones Negative Urine Blood Moderate H Urine Nitrite Negative Urine Bilirubin Negative Urine Urobilinogen 0.2 Ur Leukocyte Esterase Negative Urine RBC 10-20 H Urine WBC 3-5 Ur Epithelial Cells Moderate Urine Crystals Negative Urine Bacteria Few Urine Casts Negative Urine Mucus Moderate Urine Other Ur Culture Indicated? No/sq. contamination Urine Glucose Negative COVID-19 Source Nasopharyx SARS-CoV-2 (PCR) Negative Influenza Type A (PCR) Negative Influenza Type B (PCR) Negative RSV (PCR) Negative 07/23/20 07/23/20 06:10 06:10 WBC RBC Hgb Hct MCV MCH MCHC RDW Plt Count MPV Immature Gran % Neutrophils % Lymphocytes % Monocytes % Eosinophils % Basophils % Nucleated RBC % Absolute Neutrophils Absolute Lymphocytes Absolute Monocytes Absolute Eosinophils Absolute Basophils VBG Lactate 1.8 H Sodium 137 Potassium 3.8 Chloride 104 Carbon Dioxide 23.8 Anion Gap 9.2 BUN 14 Creatinine 0.7 Estimated GFR/1.73 m2 >= 60.00 Glucose 122 H Calcium 8.6 Total Bilirubin 0.4 Conjugated Bilirubin 0.05 AST 14 L ALT 18 Alkaline Phosphatase 67 Total Protein 7.6 Albumin 3.8 Lipase 128 Urine Color Urine Clarity Urine pH Ur Specific [place] Urine Protein Urine Ketones Urine Blood Urine Nitrite Urine Bilirubin Urine Urobilinogen Ur Leukocyte Esterase Urine RBC Urine WBC Ur Epithelial Cells Urine Crystals Urine Bacteria Urine Casts Urine Mucus Urine Other Ur Culture Indicated? Urine Glucose COVID-19 Source SARS-CoV-2 (PCR) Influenza Type A (PCR) Influenza Type B (PCR) RSV (PCR) PFSH Medical History (Updated 07/23/20 @ 10:31 by Sailaja Loera MD) No active medical problems Surgical History (Updated 07/23/20 @ 17:11 by Sailaja Loera MD) Dilation and curettage (03/15/13) S/P laparoscopic appendectomy (~07/23/20) S/P ovarian cystectomy Laproscopic age 9. Family History Mother Asthma Father Hyperlipidemia Grandfather Essential hypertension Hyperlipidemia Stroke Grandmother Pulmonary fibrosis Grandmother Essential hypertension Hyperlipidemia Maternal Aunt Essential hypertension Neoplasm MALIGNANT BREAST Social History Smoking/Tobacco Use Status: Never Smoking risk assessment performed?: Yes Alcohol Intake: former Details: none w/ 1 monthly or less Drug use: Never Substance use type: does not use Adopted: No Foster care: No Number of Children: 2 Yovana/Adventism: christiani Special yovana needs: No Seatbelt use: always Helmet use: Yes Drive intox or ride w/intox service car driver: No Water heater temp set <120 deg: Yes Working smoke detector in home: Yes Fire extinguisher in home: Yes Carbon monox detector in home: Yes Firearms in home: Yes Do you feel safe at home: Yes Do you feel safe in your relationship?: Yes Victim of physical abuse: No Victim of emotional abuse: No Victim of sexual abuse: No History History 8 Para Hx # Term Pregnancies Multiple births Hx # Pregnancies Ectopic pregnancies AB induced Hx Number of Living Children AB spontaneous
[2020-07-23] MEDS: Ketorolac 30 MG/ML VIAL IVP (17:28)
== END 2020-07-23 18:31 | disposition home or self-care (01) ==
LOC: ER 08:18 → SUR 08:24 → ER 13:51 → SUR 13:52 → MS 13:55
PROVIDERS: Emergency Medicine; Admitting Provider Surgery; Emergency Provider Physician Assistant; PCP Student in an Organized Health Care Education/Training Program; Visit Provider Surgery
PROC: 0DTJ4ZZ Resection of Appendix, Percutaneous Endoscopic Approach (ICD-10-PCS; CPT 44970; principal; 2020-07-23 10:45)
DX: K35.890 Other acute appendicitis without perforation or gangrene (principal)
CPT/HCPCS: 44970; 36415; 80053; 81025; 83690; 96361; 96365; 96375; 96376; 99223; 99238; 99285; NC; 74177; 81003; 81015; 82248; 83605; 85025; 88304; 94667; G0378; J1100; J1885; J2001; J2405; J2543; J3490